=== PATIENT | male | born 1960 | race Caucasian/White ===

== ENCOUNTER 2020-06-06 09:22 | Emergency (ER) | payer BC, SELFPAY ==
[2020-06-06 09:24] VITALS: BP 159/114; PULSE 87; RESP 17; TEMP 36.1; O2SAT 98; BMI 31.1
--- NOTE | 2020-06-06 10:24 | CT_ITS ---
HISTORY: LEFT FLANK PAIN S/P FALL 3 DAYS AGO ADDITIONAL HISTORY: None provided. EXAMINATION/TECHNIQUE: CT Abdomen And Pelvis W/O Contrast Injection Enteric contrast was not given. Number of images including paperwork: [id number]. A radiation dose optimization technique was used for this scan. COMPARISON: None FINDINGS: Evaluation of the abdominopelvic organs is limited in the absence of contrast. LOWER THORAX: Small left pleural effusion, mean density less than 10 HU. Mild basilar opacities compatible with subsegmental atelectasis versus scarring. LIVER: Decreased hepatic density compatible steatosis. GALLBLADDER: No radiopaque calculi. BILE DUCTS: No significant biliary dilatation. SPLEEN: Unremarkable. PANCREAS: Unremarkable. ADRENAL GLANDS: Unremarkable. KIDNEYS/URETERS: Unremarkable. BOWEL: No bowel obstruction. No significant bowel wall thickening. No localized inflammation. APPENDIX: Normal. FREE FLUID: No significant free fluid. FREE AIR: None. LYMPH NODES: No pathologic appearing adenopathy. PERITONEUM, RETROPERITONEUM AND MESENTERY: Otherwise unremarkable. VASCULATURE: Atherosclerotic calcification. ABDOMINAL WALL: Unremarkable. PELVIS: Unremarkable bladder. OSSEOUS AND SOFT TISSUE STRUCTURES: Displaced fractures of the left posterior 10th and 11th ribs. CT/Abdomen/Pelvis without Cont IMPRESSION: 1. No acute intra-abdominal traumatic injury. 2. Displaced left 10th and 11th posterior rib fractures. 3. Small left pleural effusion. Individualized dose optimization techniques were used for this CT. at 1053 Reported and signed by: Celia Pinzon MD Electronically Signed: Celia Pinzon MD at 10:53 EDT Tel , Service support ,
--- NOTE | 2020-06-06 10:24 | RAD_ITS ---
STUDY: X-RAY CHEST REASON FOR EXAM: Male, 60 years old. pt fell 2 days ago, left posterior rib/back pain TECHNIQUE: PA and lateral views of the chest. COMPARISON: None. FINDINGS: The lungs are clear and expanded. Slightly elevated right hemidiaphragm with some thickening of the minor fissure the right lung. There is moderate cardiac enlargement. Normal mediastinum and miladys. Normal visualized pulmonary arteries. Normal visualized aortic arch and descending thoracic aorta. Normal visualized thoracic spine. Normal visualized ribs, clavicles, and shoulders. There is no demonstrated abnormality of the visualized soft tissue structures of the upper abdomen. RAD/Chest PA and Lateral IMPRESSION: No active disease. Electronically Signed: Jasvir Florence MD at 10:59 EDT Tel , Service support ,
--- NOTE | 2020-06-06 10:26 | ED.VISSUMM ---
- ER Visit Summary Date of Service: 06/06/20 Chief Complaint: Fall on with left flank pain and bruising History of Present Illness: The patient is a 60 M with no past medical or surgical history. Patient is on no medications. States he slipped and fell on wooden steps outside his home on afternoon evening. Had immediate pain. The pain is actually greatly improved since that time. He denies hitting his head. No head or neck pain. No LOC. No chest or abdominal pain. No hematuria. Denies any pain with extremities. He was concerned because he still having discomfort and now bruising to his left flank area. Physical Examination: Middle-aged male no acute distress vital signs stable afebrile. Sitting upright in bed. H EENT exam unremarkable atraumatic. Pupils round reactive light. No tenderness to the face or scalp. C-spine nontender normal range of motion. Trachea midline. Lungs clear to auscultation bilaterally. Equal symmetrical. Heart regular rhythm rate about 95 no murmur. Chest wall nontender. Abdomen soft nontender. Normal bowel sounds no peritoneal signs. No bruising. Pelvic girdle intact. Patient moves all 4 extremities. Normal range of motion. Normal motor strength and sensation. Neurovascularly intact. No signs of trauma. Back C-spine T-spine LS-spine all nontender. There is tenderness and bruising along his left CVA left lower rib cage area that is tender to palpation. Neurologically is awake and alert with no focal or sensorimotor deficits. Test Results: Chest x-ray 2 views AP and lateral read by myself shows no acute abnormality. No pneumothorax. No obvious rib fractures. CT flank shows 2 rib fractures of the the left 10th and 11th ribs. There is a small pleural effusion. No pneumothorax. Read by the radiologist and reviewed by me. The kidney appears normal. There is no hollow or solid organ injuries noted. Emergency Department Course and Treatment: Imaging of the lower ribs and CAT scan of the flank to rule out rib fracture versus kidney or other solid organ injury. Patient did not waiting for pain. Patient doing well on repeat exam at 11:10 AM. He and I went over his test results. Treatment Plan: Ice to the ribs. Pillow for support. Tylenol Motrin for pain. Follow-up if not improving. Return if worse. Disposition: discharge Impression: Acute fall on Acute left flank pain with bruising and hematoma Left 10th and 11th rib fractures This note was generated with [employer] dictation software. It may contain incorrect words, spelling, and punctuation that were not noted in review of the chart prior to signing ED Disposition - Plan for ED Patient: Referrals: Johanna Christine MD [Primary Care Provider] -
--- NOTE | 2020-06-06 11:15 | ED.DEP ---
ED Disposition - Plan for ED Patient: Disposition: Home or Assisted Living Instructions: Rib Fracture (Broken Rib) Referrals: Johanna Christine MD [Primary Care Provider] - 1 Week if not improving Additional Instructions: You have 2 broken ribs on the left side where the bruising is in the back #10 #11. Ice to that area. Pillow for support or tape. Tylenol Motrin for pain. Follow-up with your doctor if not improving. Return if you become very short of breath or develop blood in your urine.
== END 2020-06-06 11:24 | disposition home or self-care (01) ==
PROVIDERS: Emergency Provider Emergency Medicine; PCP Family Medicine
DX: S22.42XA Multiple fractures of ribs, left side, initial encounter for closed fracture (principal); W01.0XXA Fall on same level from slipping, tripping and stumbling without subsequent striking against object, initial encounter; R10.9 Unspecified abdominal pain; J90 Pleural effusion, not elsewhere classified
CPT/HCPCS: 71046; 74176; 99282